=== PATIENT | male | born 1990 | race Caucasian/White ===

== ENCOUNTER 2017-10-30 19:56 | Emergency (ER) | payer OTHER ==
[2017-10-30 20:00] VITALS: BP 130/81
--- NOTE | 2017-10-30 20:14 | EDPHY ---
H & P Stated Complaint: med clear, concerned about bedbugs Time Seen by Provider: 10/30/17 20:06 HPI/ROS: CHIEF COMPLAINT: Bedbugs HISTORY OF PRESENT ILLNESS: The patient is a 27-year-old homeless man who comes to the emergency department complaining of bugs in his hair that he thinks are bed bugs. He does not have them over the rest of his body or skin. No itching. No fevers. REVIEW OF SYSTEMS: Constitutional: denies: chills, fever, recent illness, recent injury EENTM: denies: blurred vision, double vision, nose congestion Respiratory: denies: cough, shortness of breath Cardiac: denies: chest pain, irregular heart rate, lightheadedness, palpitations Gastrointestinal/Abdominal: denies: abdominal pain, diarrhea, nausea, vomiting, blood streaked stools Genitourinary: denies: dysuria, frequency, hematuria, pain Musculoskeletal: denies: joint pain, muscle pain Skin: denies: lesions, rash, jaundice, bruising Neurological: denies: headache, numbness, paresthesia, tingling, dizziness, weakness Hematologic/Lymphatic: denies: blood clots, easy bleeding, easy bruising Immunologic/allergic: denies: HIV/AIDS, transplant EXAM: GENERAL: Well-appearing, well-nourished and in no acute distress. HEAD: Several small white nits cemented to her shafts, pruritic, EYES: Pupils equal round and reactive to light, extraocular movements intact, sclera anicteric, conjunctiva are normal. ENT: TMs normal, nares patent, oropharynx clear without exudates. Moist mucous membranes. NECK: Normal range of motion, supple without lymphadenopathy or JVD. LUNGS: Breath sounds clear to auscultation bilaterally and equal. No wheezes rales or rhonchi. HEART: Regular rate and rhythm without murmurs, rubs or gallops. ABDOMEN: Soft, nontender, normoactive bowel sounds. No guarding, no rebound. No masses appreciated. BACK: No CVA tenderness, no spinal tenderness, step-offs or deformities EXTREMITIES: Normal range of motion, no pitting or edema. No clubbing or cyanosis. NEUROLOGICAL: Cranial nerves II through XII grossly intact. Normal speech, normal gait. 5/5 strength, normal movement in all extremities, normal sensation PSYCH: Normal mood, normal affect. SKIN: Warm, dry, normal turgor, no visible rashes or lesions. Source: Patient, Police - Personal History Current Tetanus Diphtheria and Acellular Pertussis (TDAP): Unsure - Medical/Surgical History Hx Asthma: No Hx Chronic Respiratory Disease: No Hx Diabetes: No Hx Cardiac Disease: No Hx Renal Disease: No Hx Cirrhosis: No Hx Alcoholism: No Other PMH: seizures - Family History Significant Family History: No pertinent family hx - Social History Smoking Status: Current every day smoker Alcohol Use: Heavy Drug Use: Marijuana Constitutional: Initial Vital Signs Temperature (C) 36.8 C 10/30/17 19:58 Heart Rate 83 10/30/17 19:58 Respiratory Rate 16 10/30/17 19:58 Blood Pressure 130/81 H 10/30/17 19:58 O2 Sat (%) 97 10/30/17 19:58 O2 Delivery Mode Room Air Allergies/Adverse Reactions: bee venom protein (honey bee) Allergy (Verified 10/30/17 19:58) Home Medications: Medication Instructions Recorded Depakote 10/30/17 Permethrin [Nix] 60 ml TP ONCE #2 geoff 10/30/17 Medical Decision Making ED Course/Re-evaluation: The patient does have symptoms and exam consistent with head lice. I will treat him with permethrin shampoo and release him to police custody. Differential Diagnosis: Partial list of the Differential diagnosis considered include but were not limited to; head lice, bedbugs, poor hygiene and although unlikely based on the history and physical exam, I also considered cellulitis, sepsis. Departure - Departure Disposition: Home, Routine, Self-Care Clinical Impression: Lice infested hair Condition: Fair Instructions: Pediculosis (ED) Additional Instructions: you are medically clear for half-way Referrals: NONE *PRIMARY CARE P,. [Primary Care Provider] - As per Instructions Prescriptions: Permethrin [Nix] 60 ml TP ONCE #2 geoff
== END 2017-10-30 20:22 | disposition home or self-care (01) ==
LOC: EEVIPCON 19:56
DX: B85.2 Pediculosis, unspecified (principal); F17.200 Nicotine dependence, unspecified, uncomplicated